=== PATIENT | female | born 1930 | race Caucasian/White ===

== ENCOUNTER 2016-11-26 10:15 | Inpatient (IN) | payer MEDICARE ==
[~2016-11-26] VITALS: Ht 157.5 cm; Wt 57.2 kg
[2016-11-26] VITALS (18 sets, daily range): BP systolic 93–206; BP diastolic 48–107; PULSE 60–83; RESP 15–27; TEMP 97.8–98; O2SAT 91–100
[~2016-11-26 10:15] MED LIST: ALPR.25 PO; AMLO10 PO; CARV12.5 PO; COZA100T PO; ENAL5 PO; GLUC10TA3 PO; GLYB1TAB50 PO; LEVEMIR SC; PYRI60 PO; ST J81CH PO
[2016-11-26] MEDS ORDERED: SODIUM CHLOR 0.9% 1000 ML INJ 1,000 ML IV ONE ×2 (10:22→10:52)
[2016-11-26] MEDS ORDERED: SODIUM CHLORIDE 0.9% FLUSH 5 ML FLUSH IVF PRN (10:30)
--- NOTE | 2016-11-26 10:37 | PD ---
HPI . Weakness Chief Complaint: Pain: Acute or Chronic Time Seen by Provider: 10:21 Travel History International Travel<30 days: No Contact w/Intl Traveler<30days: No Traveled to known affect area: No History of Present Illness HPI Patient presents via [facility] with a chief complaint of weakness. She reports the onset of her symptoms today. She states she was so weak today that it caused her to fall and injure her back. EMS reports that the family reported to them that the patient has had decreased by mouth intake and decreased activity for the last couple of days. She lives alone. They got a fingerstick blood sugar en route of greater than 400. She states she has been compliant with her medication. She reports no dietary indiscretions. She denies nausea, vomiting or diarrhea. She denies abdominal pain. She denies chest pain or shortness of breath. She states she does urinate a lot and that her mouth is dry. PFSH Past Medical History Hx Anticoagulant Therapy: No Anemia: Yes Arthritis: Yes Cancer: Yes (right breast in [id number]?) Cardiovascular Problems: Yes (HTN) Chemotherapy: No Diabetes: Yes Patient Takes Glucophage: No Diminished Hearing: No Endocrine: Yes Gastrointestinal Disorders: No Genitourinary: No Hypertension: Yes Immune Disorder: No Musculoskeletal: Yes Neurologic: Yes Reproductive: Yes (hysterectomy) Respiratory: No Radiation Therapy: Yes Tetanus Vaccination: Unknown ?: Not Menopausal: Yes Past Surgical History Abdominal Surgery: No Cardiac Surgery: No Endocrine Surgery: Yes (thyroid bx) Eye Surgery: Yes (catarct removed 10 yrs ago) Gynecologic Surgery: Yes (hysterectomy ,rigth breast lumpectomy) Hysterectomy: Yes Neurologic Surgery: No Thoracic Surgery: No Tonsillectomy: Yes Other Surgery: Yes Social History Alcohol Use: Yes (mix drinks occas.) Tobacco Use: No Substance Use: No Allergies-Medications (Allergen,Severity, Reaction): Coded Allergies: No Known Allergies (Unverified , 11/26/16) Reported Meds & Prescriptions Reported Meds & Active Scripts Active Reported Levemir Inj (Insulin Detemir) 1,000 unit/ 10 ML Vial 15 Units SQ HS Do not mix with any other Insulin. Losartan (Losartan Potassium) 100 Mg Tab 100 Mg PO DAILY Pyridostigmine (Pyridostigmine [place]) 60 Mg Tab 60 Mg PO TID Enalapril (Enalapril Maleate) 5 Mg Tab 5 Mg PO BID Amlodipine (Amlodipine Besylate) 10 Mg Tab 10 Mg PO DAILY Glipizide 10 Mg Tab 10 Mg PO DAILY Take 30 minutes before a meal Carvedilol 25 Mg Tab 25 Mg PO BID Review of Systems Except as stated in HPI: all other systems reviewed are Neg General / Constitutional: No: Fever, Chills Eyes: No: Blurred Vision HENT: No: Headaches Cardiovascular: No: Chest Pain or Discomfort Respiratory: No: Shortness of Breath Gastrointestinal: No: Nausea, Vomiting, Diarrhea, Abdominal Pain, Loss of Appetite Genitourinary: Positive: Frequency, No: Urgency, Dysuria Musculoskeletal: Positive: Pain (back pain) Neurologic: Positive: Weakness, No: Syncope, Focal Abnormalities Endocrine: Positive: Polyuria, Other (she denies polydipsia but states that her mouth is dry) Physical Exam Narrative GENERAL: Elderly woman who is awake and alert and does not appear to be in any acute distress. SKIN: Warm and dry. HEAD: Atraumatic. Normocephalic. EYES: Pupils equal and round. Extraocular movements are intact. ENT: No nasal bleeding or discharge. Mucous membranes pink but dry. Faint odor of ketones. NECK: Trachea midline. Neck is supple. CARDIOVASCULAR: Regular rate and rhythm. Heart sounds are normal. RESPIRATORY: No accessory muscle use. Lungs sound clear with full air movement throughout. GASTROINTESTINAL: Abdomen soft, non-tender, nondistended. MUSCULOSKELETAL: No obvious deformities. No edema. Patient is currently unable to sit up or roll over for me to examine her back. NEUROLOGICAL: Awake and alert. No obvious cranial nerve deficits. Motor grossly within normal limits. Normal speech. PSYCHIATRIC: Appropriate mood and affect; insight and judgment normal. Data Data Last Documented VS Vital Signs Date Time Temp Pulse Resp B/P Pulse Ox O2 Delivery O2 Flow Rate FiO2 11/26/16 12:02 70 16 155/55 99 Room Air 11/26/16 10:18 98.0 Orders Electrocardiogram (11/26/16 10:22) Complete Blood Count With Diff (11/26/16 10:22) Comprehensive Metabolic Panel (11/26/16 10:22) Magnesium (Mg) (11/26/16 10:22) Phosphorus (Po4) (11/26/16 10:22) Beta Hydroxybutyrate (Acetone) (11/26/16 10:22) Urinalysis - C+S If Indicated (11/26/16 10:22) Blood Glucose (11/26/16 10:22) Blood Glucose (11/26/16 11:22) Ecg Monitoring (11/26/16 10:22) Iv Access Insert/Monitor (11/26/16 10:22) Oximetry (11/26/16 10:22) NPO (11/26/16 10:22) Sodium Chlor 0.9% 1000 Ml Inj (Ns 1000 M (11/26/16 10:22) Sodium Chlor 0.9% 1000 Ml Inj (Ns 1000 M (11/26/16 10:52) Sodium Chloride 0.9% Flush (Ns Flush) (11/26/16 10:30) Troponin I (11/26/16 10:22) Spine, Lumbar - Ltd (Ap & Lat) (11/26/16 ) Insulin Regular (Iv Infusion) (Novolin R (11/26/16 11:00) Sodium Chlor 0.45%... W/Potassium Chlori (11/26/16 11:00) Morphine Inj (Morphine Inj) (11/26/16 11:30) Ondansetron Inj (Zofran Inj) (11/26/16 11:30) Basic Metabolic Panel (Bmp) (11/26/16 13:30) Blood Gas Venous Ph (11/26/16 13:30) Cath For Specimen (11/26/16 12:40) Labs Laboratory Tests Test 11/26/16 11/26/16 10:30 12:37 White Blood Count 12.1 TH/MM3 Red Blood Count 4.21 MIL/MM3 Hemoglobin 12.4 GM/DL Hematocrit 37.3 % Mean Corpuscular Volume 88.7 FL Mean Corpuscular Hemoglobin 29.4 PG Mean Corpuscular Hemoglobin 33.2 % Concent Red Cell Distribution Width 13.4 % Platelet Count 415 TH/MM3 Mean Platelet Volume 7.8 FL Neutrophils (%) (Auto) 71.3 % Lymphocytes (%) (Auto) 15.7 % Monocytes (%) (Auto) 6.7 % Eosinophils (%) (Auto) 2.1 % Basophils (%) (Auto) 4.2 % Neutrophils # (Auto) 8.6 TH/MM3 Lymphocytes # (Auto) 1.9 TH/MM3 Monocytes # (Auto) 0.8 TH/MM3 Eosinophils # (Auto) 0.3 TH/MM3 Basophils # (Auto) 0.5 TH/MM3 CBC Comment DIFF FINAL Differential Comment Sodium Level 137 MEQ/L 139 MEQ/L Potassium Level 4.4 MEQ/L 4.2 MEQ/L Chloride Level 101 MEQ/L 106 MEQ/L Carbon Dioxide Level 20.3 MEQ/L Anion Gap 16 MEQ/L Blood Urea Nitrogen 44 MG/DL Creatinine 1.60 MG/DL Estimat Glomerular Filtration 31 ML/MIN Rate Random Glucose 462 MG/DL Calcium Level 9.2 MG/DL Phosphorus Level 3.7 MG/DL Magnesium Level 1.9 MG/DL Total Bilirubin 0.7 MG/DL Aspartate Amino Transf 5 U/L (AST/SGOT) Alanine Aminotransferase 13 U/L (ALT/SGPT) Alkaline Phosphatase 77 U/L Troponin I LESS THAN 0.02 NG/ML Total Protein 7.6 GM/DL Albumin 3.0 GM/DL B-Hydroxybutyrate 5.67 MMOL/L MDM Medical Decision Making Medical Screen Exam Complete: Yes Emergency Medical Condition: Yes Medical Record Reviewed: Yes (past history significant for hypertension, diabetes and a remote history of breast cancer which was treated with x-ray therapy.) Interpretation(s) EKG shows a sinus rhythm. It is unchanged from previous. Differential Diagnosis Differential diagnosis of weakness includes but is not limited to infection, CVA , electrolyte disturbance, renal failure, hypoglycemia, UTI, ACS, acute blood loss Narrative Course Patient presents via EMS with a couple day history of weakness, poor by mouth intake and decreased activity. She is hyperglycemic. She has also suffered a fall this morning injuring her back. CBC & BMP Diagram 11/26/16 10:30 Her cardiac enzymes are negative. Ketones are 5.67 Last Impressions Lumbar Spine X-Ray 11/26/16 0000 Signed Impressions: Service Date/Time: Saturday, November 26, 2016 10:58 - CONCLUSION: 1. Subtle height loss at the superior endplate of L2 could represent a subtle compression fracture. This represents a change from the prior study from August 2014. 2. No other acute finding is identified. There are degenerative changes throughout the lumbar spine, as above. Prasad Anderson MD The x-rays were independently viewed by me. The patient has been receiving IV normal saline 2 L. I added a little saline with 40 of K at 250 cc per hour when I started her insulin. She is on an insulin drip at 0.1 mg/kg per hour. Glucose is being monitored. Patient was given morphine and Zofran for her back pain. Physician Communication Physician Communication Dr. Walker will admit the patient. Diagnosis Primary Impression: Hyperglycemia Additional Impression: Compression fracture of L2 Qualified Code: S32.020A - Compression fracture of L2, closed, initial encounter Admitting Information Admitting Physician Requests: Admit Condition: Stable Bessie Almaguer MD Nov 26, 2016 10:37
[2016-11-26 10:40] LABS: AUTOMATED NEUTROPHIL # 8.6 TH/MM3 (1.8-7.7); BASOPHIL # 0.5 TH/MM3 (0-0.2); BASOPHIL % 4.2 % (0.0-2.0); EOSINOPHIL # 0.3 TH/MM3 (0-0.4); EOSINOPHIL % 2.1 % (0.0-4.0); HEMATOCRIT 37.3 % (35.0-46.0); LYMPH % 15.7 % (9.0-44.0); LYMPHOCYTE # 1.9 TH/MM3 (1.0-4.8); MEAN CELL VOLUME 88.7 FL (80.0-100.0); MEAN CORPUSCULAR HEMOGLOBIN 29.4 PG (27.0-34.0); MEAN CORPUSCULAR HGB CONC 33.2 % (32.0-36.0); MONO % 6.7 % (0.0-8.0); NEUT % 71.3 % (16.0-70.0); PLATELET COUNT 415 TH/MM3 (150-450); RED BLOOD COUNT 4.21 MIL/MM3 (4.00-5.30); RED CELL DISTRIBUTION WIDTH 13.4 % (11.6-17.2); WHITE BLOOD COUNT 12.1 TH/MM3 (4.0-11.0)
[2016-11-26] MEDS ORDERED: ENAL5TAB PO (10:42)
[2016-11-26] MEDS ORDERED: AMLO10TA2 PO (10:42)
[2016-11-26] MEDS ORDERED: PYRI60 PO (10:42)
[2016-11-26] MEDS ORDERED: CARV25TA PO (10:42)
[2016-11-26] MEDS ORDERED: LOSA100T PO (10:42)
[2016-11-26] MEDS ORDERED: LEVEMIR SQ (10:42)
[2016-11-26] MEDS ORDERED: GLIP10TA6 PO (10:42)
[2016-11-26 10:46] LABS: HEMO FLAGS DIFF FINAL
[2016-11-26 10:48] LABS: CHLORIDE 101 MEQ/L (98-107); POTASSIUM 4.4 MEQ/L (3.5-5.1); SODIUM (NA) 137 MEQ/L (136-145)
[2016-11-26 10:52] LABS: ANION GAP 16 MEQ/L (5-15); BICARBONATE 20.3 MEQ/L (21.0-32.0)
[2016-11-26] MEDS ORDERED: POTASSIUM CHLORIDE INJ 40 MEQ in SODIUM CHLOR 0.45% 1000 ML INJ 1,000 ML IV SCH (11:00)
[2016-11-26] MEDS ORDERED: INSULIN REGULAR (IV INFUSION) 100 UNITS in SODIUM CHLORIDE 0.9% INJ 99 ML IV SCH ×2 (11:00→13:45)
[2016-11-26 11:01] LABS: ALKALINE PHOSPHATASE 77 U/L (45-117); ALT (GPT) 13 U/L (10-53); BLOOD UREA NITROGEN 44 MG/DL (7-18); GLOMERULAR FILTRATION RATE 31 ML/MIN (>89); MAGNESIUM 1.9 MG/DL (1.5-2.5); TOTAL BILIRUBIN ADULT 0.7 MG/DL (0.2-1.0)
[2016-11-26 11:06] LABS: AST (GOT) 5 U/L (15-37)
--- NOTE | 2016-11-26 11:22 | RADHPO ---
EXAM DATE/TIME: 11/26/2016 10:58 [facility] COMPARISON: SPINE LUMBAR LTD (AP & LAT), September 15, 2014, 20:38. INDICATIONS : Low back pain from fall MEDICAL HISTORY : None. SURGICAL HISTORY : None. ENCOUNTER: Initial ACUITY: 1 day PAIN SCORE: 6/10 LOCATION: Bilateral low back FINDINGS: 3 views of the lumbar spine demonstrate 5 nonrib-bearing lumbar vertebral bodies. The bones appear un dermineralized. There is subtle height loss at the superior endplate of L2 that appears different fro m the prior study. Remaining vertebral body height is maintained. There is no anterolisthesis or retr olisthesis. Endplate osteophytes are present anteriorly at multiple levels. There is facet hypertroph y at L3-L4 through L5-S1. There is moderate atherosclerotic disease of the aorta. CONCLUSION: 1. Subtle height loss at the superior endplate of L2 could represent a subtle compression fracture. T his represents a change from the prior study from August 2014. 2. No other acute finding is identified. There are degenerative changes throughout the lumbar spine, as above. Prasad Anderson MD on November 26, 2016 at 11:19 Board Certified Radiologist. This report was verified electronically.
[2016-11-26] MEDS ORDERED: MORPHINE SULFATE 4 MG/ML INJ IV ONE (11:30)
[2016-11-26] MEDS ORDERED: ONDANSETRON HCL 4 MG/2 ML VIAL IV PUSH ONE (11:30)
[2016-11-26 11:33] LABS: BETA-HYDROXYBUTYRATE 5.67 MMOL/L (0.00-0.39)
[2016-11-26 12:51] LABS: POTASSIUM 4.2 MEQ/L (3.5-5.1)
[2016-11-26 13:09] LABS: BICARBONATE 17.1 MEQ/L (21.0-32.0)
[2016-11-26] MEDS ORDERED: DEXT 5%-NACL 0.9% 1000 ML INJ 1,000 ML IV SCH (13:34)
[2016-11-26] MEDS ORDERED: SODIUM CHLOR 0.9% 1000 ML INJ 1,000 ML IV SCH (13:34)
[2016-11-26 13:40] LABS: KETONE, URINE 40 mg/dL (NEG); NITRITE,URINE NEG (NEG); PH, URINE 5.5 (5.0-8.5)
[2016-11-26] MEDS ORDERED: SODIUM BICARBONATE 8.4% SOLN 50 MEQ/50 ML VIAL IV PRN ×2 (13:45)
[2016-11-26] MEDS ORDERED: MISCELLANEOUS NURSING INFORMATION XX SCH (13:45)
[2016-11-26] MEDS ORDERED: POTASSIUM CHLOR 20 MEQ PREMIX 100 ML IV PRN ×4 (13:45)
[2016-11-26] MEDS ORDERED: CHLORHEXIDINE GLUCONATE 2 % 1 PACK (2 CLOTHS) TOP PRN (13:45)
[2016-11-26] MEDS ORDERED: SODIUM PHOSPHATE INJ 15 MMOL in SODIUM CHLORIDE 0.9% INJ 100 ML IV PRN (13:45)
[2016-11-26 13:46] LABS: BLOOD, URINE MOD (NEG); GLUCOSE,URINE 1000 OR GREATER mg/dL (NEG); METHOD OF COLLECTION CLEAN CATCH
[2016-11-26 13:47] LABS: COMMENT (UR) CULT NOT INDICATED; CULTURE IF INDICATED CULT NOT INDICATED; RBC, URINE 15-19 /hpf (0-3); SQUAMOUS EPITHELIAL CELL URINE 0-5 /hpf (0-5); URINE COLOR YELLOW (YELLW/STRAW); WBC, URINE 0-2 /hpf (0-5)
[2016-11-26 14:13] LABS: BLOOD GAS BASE EXCESS -7.5 mmol/L (-2-2); BLOOD GAS CARBOXYHEMOGLOBIN 2.1 % (0-4); BLOOD GAS HCO3 17 mmol/L (22-26); BLOOD GAS METHEMOGLOBIN 1.1 % (0-2); BLOOD GAS O2 HGB SATURATION 95 % (90-100); BLOOD GAS OXYGEN CONTENT 16.5 Vol % (12.0-20.0); BLOOD GAS PCO2 31 mmHG (38-42); BLOOD GAS PO2 94 mmHG (61-120); BLOOD GAS TOTAL HGB 12.3 G/DL (12.0-16.0); CRITICAL VALUE NO; DRAW SITE LT RADIAL; FIO2 21 %; NUMBER OF ARTERIAL PUNCTURES 1; OXYGEN DEVICE ROOM AIR; STAT NO; TEMP CORR TO 98.6; ULNAR PULSE PRESENT
--- NOTE | 2016-11-26 14:17 | RADHPO ---
EXAM DATE/TIME: 11/26/2016 13:52 [facility] COMPARISON: CHEST SINGLE AP, February 21, 2016, 16:33. CHEST PA & LAT, September 14, 2014, 10:57. INDICATIONS : Evaluate for pneumonia, pneumothorax or other communicable disease, pre admit for compression fx L2 MEDICAL HISTORY : Carcinoma, breast. SURGICAL HISTORY : None. ENCOUNTER: Subsequent ACUITY: 1 day PAIN SCORE: 0/10 LOCATION: Bilateral chest FINDINGS: Frontal and lateral views of the chest demonstrate a normal-sized cardiac silhouette with calcificati on of the aorta. Lungs are underinflated and there is subsegmental atelectasis at the right lung base . No effusion, consolidation, or pneumothorax is visualized. There is elevation of the right humeral head suggesting chronic rotator cuff tear. CONCLUSION: Underinflated examination with atelectasis at the right lung base. Otherwise, no acute finding is trevor ntified. Prasad Anderson MD on November 26, 2016 at 14:14 Board Certified Radiologist. This report was verified electronically.
[2016-11-26] MEDS ORDERED: GLUCAGON 1 MG/ML VIAL OTHER PRN (15:15)
[2016-11-26] MEDS ORDERED: MORPHINE SULFATE 4 MG/ML INJ IV PUSH PRN (15:15)
[2016-11-26] MEDS ORDERED: DEXTROSE 50% IN WATER 50 ML VIAL(D50) IV PUSH PRN (15:15)
[2016-11-26] MEDS: INSULIN ASPART SUPPLEMENTAL SCALE SQ SCH ×2 (16:12→21:00)
[2016-11-26] MEDS: SODIUM CHLOR 0.9% 1000 ML INJ 1,000 ML IV SCH (16:12)
[2016-11-26] MEDS: oxyCODONE/ACETAMINOPHEN 5 MG/325 MG TAB PO PRN (16:12)
[2016-11-26] MEDS: PYRIDOSTIGMINE BROMIDE 60 MG TAB PO SCH (16:12)
--- NOTE | 2016-11-26 16:40 | MH ---
cc: SULEIMAN JO MD DATE OF ADMISSION 11/26/2016 CHIEF COMPLAINT Acute on chronic back pain. HISTORY OF PRESENT ILLNESS This is an 86-year female with past medical-surgical history significant for anemia, arthritis, right breast cancer status post a mastectomy, right side. Hypertension, diabetes mellitus. History of hysterectomy, postmenopausal, thyroid biopsy in the past, cataract removed 10 years ago and tonsillectomy, who came to the ER at [facility] via [facility] with a chief complaint of generalized weakness and also having acute on chronic lower back pain. The pain is about 7-8 out of 10. She feels so weak today that it caused her to fall and is complaining of pain in the back and injury to the back. EMS reported that the family reported to them that the patient had decreased intake by mouth and decreased activity for the last couple of days. She lives alone. She got fingerstick blood sugar and it is elevated in the 400s. She states that she has been compliant with medications. She reports no dietary indiscretions. She denies nausea or vomiting, diarrhea and she denies any abdominal pain. She denies any chest pain, shortness of breath. She denies any frequent painful urination or any other symptom or complaint. Other than that nothing significant. The patient is not a very good historian. PAST MEDICAL AND SURGICAL HISTORY As dictated above. SOCIAL HISTORY Denies smoking. Drinks socially. Denies any drug use. Lives at home alone. She is a retired patent legal assistant. FAMILY HISTORY Nothing significant. ALLERGIES NO KNOWN DRUG ALLERGIES. MEDICATIONS Include: 1. Levemir injection 15 units subcutaneous at bedtime. 2. Losartan 100 mg p.o. daily. 3. Pyridostigmine 60 milligrams p.o. three times a day. 4. Enalapril 5 mg p.o. b.i.d. 5. Amlodipine 10 mg p.o. daily. 6. Glipizide 10 mg p.o. daily. 7. Carvedilol 25 mg p.o. b.i.d. REVIEW OF SYSTEMS Positive for back pain, feeling weak and tired, but again the patient is not a reliable in history and review of symptoms. PHYSICAL EXAMINATION GENERAL: This is an 86-year-old female lying in bed not in any acute distress. VITAL SIGNS: Temperature 98.0, heart rate 70, respiratory rate 16, blood pressure 148/64. O2 saturation 97% on room air. HEENT: Normocephalic, atraumatic. Extraocular muscles intact. Pupils equal, round and reactive to light. Oral mucosa is moist. NECK: Supple. No visible thyromegaly or neck mass. Trachea is central. CARDIOVASCULAR: Regular rate and rhythm. LUNGS: Clear to auscultation bilaterally. ABDOMEN: Soft. Nontender. Bowel sounds audible. EXTREMITIES: No pedal edema. No calf tenderness. No joint swelling, erythema. Full range of motion of all extremities. NEUROLOGICAL: Awake, alert, oriented times three. Moving all extremities. Speech is normal. SKIN: Warm and dry. BACK: Shows lower back tenderness. LABORATORY DATA Labs, CBC showed WBC count 12.1 high. Neutrophil high at 71.3. Basophils high 4.2. Neutrophil is 8.6 high. Otherwise CBC is normal. Hemoglobin is 12.4 normal, hematocrit 37.3 normal. BMP shows carbon dioxide high at 17.1. Anion gap is 16 high. BUN is 40, high. Creatinine was 1.6 now it is 1.5. Blood glucose of 462, then 388, then 192 last reading. Nurse CRISTINA Deluna told me about 192 blood sugar. He checked at bedside. Troponin I less than 0.02. Albumin 3.0, total protein 7.0. ____ 5.67 high. Urine examination showed glucose greater than 1000, 40 of ketones, moderate occult blood, rbc's 15-19, wbc's 0-2. ABGs done pH of 7.35 with pCO2 of 31 low, with bicarb 17. is 31 low. Blood cultures x2 done negative so far. IMAGING Lumbar spine x-ray was done shows subtle height loss at the superior endplate of L2 could represent a subtle compression fracture. This represents a change from the prior study from August of 2014. No acute finding is identified. There are degenerative changes throughout the lumbar spine and above. Chest x-ray was done shows under inflated examination with atelectasis at the right lung base, otherwise no acute findings is identified. ASSESSMENT/PLAN 1. This is an 86-year female who came to the ER diagnosed with DKA. The patient's sugar was 462 with 5.62 beta hydroxybuterate. The patient got IV fluids and insulin and the patient's sugar dropped down to 192. We managed the sugar with high-dose insulin sliding scale and monitored closely. The patient is in ICU. 2. Acute on chronic lower back pain. I will start the patient on morphine 4 mg IV q.4 hours p.r.n. pain and also Percocet 5/325 q.6h as needed for pain. 3. History of hypertension. Continue home medication. 4. Diabetes mellitus. The patient on ADA 1800 calorie diet. High dose sliding scale insulin. Check blood sugars very closely. 5. Renal failure / insufficiency. Most likely secondary to dehydration and DKA. We will monitor very closely. 6. Status post fall and x-ray of the lumbar spine shows subtle height loss at the superior endplate of L2 could represents a subtle compression fracture. Orthopedic consulted for further recommendation. The patient is on pain medicine. 7. History of arthritis. Continue home medication. 8. History of myasthenia gravis. Continue home medication. 9. DVT prophylaxis. SCDs. 10. GI prophylaxis. Protonix 40 mg p.o. daily. We are going to manage the patient on a daily basis and make recommendations on a daily basis. Suleiman Jo MD EA/BIBI /3:05 PM /4:04 PM
[2016-11-26 19:06] LABS: CHLORIDE 111 MEQ/L (98-107); POTASSIUM 4.2 MEQ/L (3.5-5.1); SODIUM (NA) 143 MEQ/L (136-145)
[2016-11-26 20:22] LABS: ANION GAP 12 MEQ/L (5-15); BICARBONATE 19.6 MEQ/L (21.0-32.0); BLOOD UREA NITROGEN 35 MG/DL (7-18); GLOMERULAR FILTRATION RATE 36 ML/MIN (>89); MAGNESIUM 1.8 MG/DL (1.5-2.5)
[2016-11-26] MEDS: ENALAPRIL MALEATE 5 MG TAB PO SCH (21:34)
[2016-11-26] MEDS: CARVEDILOL 12.5 MG TAB PO SCH (21:35)
[2016-11-27] VITALS (51 sets, daily range): BP systolic 97–140; BP diastolic 44–70; PULSE 54–76; RESP 12–36; TEMP 97.6–98.1; O2SAT 92–98
[2016-11-27 05:45] LABS: AUTOMATED NEUTROPHIL # 5.1 TH/MM3 (1.8-7.7); BASOPHIL # 0.1 TH/MM3 (0-0.2); BASOPHIL % 0.9 % (0.0-2.0); EOSINOPHIL # 0.4 TH/MM3 (0-0.4); EOSINOPHIL % 4.8 % (0.0-4.0); HEMATOCRIT 34.7 % (35.0-46.0); HEMO FLAGS DIFF FINAL; LYMPH % 24.2 % (9.0-44.0); MEAN CELL VOLUME 87.5 FL (80.0-100.0); MEAN CORPUSCULAR HEMOGLOBIN 28.8 PG (27.0-34.0); MEAN CORPUSCULAR HGB CONC 32.9 % (32.0-36.0); NEUT % 60.1 % (16.0-70.0); PLATELET COUNT 323 TH/MM3 (150-450); RED BLOOD COUNT 3.96 MIL/MM3 (4.00-5.30); RED CELL DISTRIBUTION WIDTH 13.1 % (11.6-17.2); WHITE BLOOD COUNT 8.4 TH/MM3 (4.0-11.0)
[2016-11-27 05:57] LABS: CHLORIDE 111 MEQ/L (98-107); POTASSIUM 4.3 MEQ/L (3.5-5.1); SODIUM (NA) 143 MEQ/L (136-145)
[2016-11-27 06:02] LABS: ANION GAP 13 MEQ/L (5-15); BICARBONATE 19.4 MEQ/L (21.0-32.0); BLOOD UREA NITROGEN 33 MG/DL (7-18)
[2016-11-27 06:05] LABS: ALT (GPT) 11 U/L (10-53); AST (GOT) 8 U/L (15-37); GLOMERULAR FILTRATION RATE 36 ML/MIN (>89)
[2016-11-27 06:07] LABS: TOTAL BILIRUBIN ADULT 0.5 MG/DL (0.2-1.0)
[2016-11-27 06:08] LABS: ALKALINE PHOSPHATASE 67 U/L (45-117)
[2016-11-27] MEDS: INSULIN ASPART SUPPLEMENTAL SCALE SQ SCH ×4 (06:35→21:17)
[2016-11-27] MEDS: SODIUM CHLOR 0.9% 1000 ML INJ 1,000 ML IV SCH ×3 (06:35→21:17)
[2016-11-27] MEDS: CHLORHEXIDINE GLUCONATE 2 % 1 PACK (2 CLOTHS) TOP SCH (06:37)
--- NOTE | 2016-11-27 08:21 | HHI.PR ---
Subjective History of Present Illness Patient feel better no acute issue d/w RN Will transfer [facility]. Review of Systems Constitutional Constitutional: Fatigue, Weakness Vitals/Results Intake & Output 11/26/16 11/26/16 11/27/16 15:00 23:00 07:00 Intake Total 2000 ml 2590 ml 1033 ml Output Total 600 ml 400 ml Balance 2000 ml 1990 ml 633 ml Intake Oral 480 ml 240 ml IV Total 2000 ml 2110 ml 793 ml Output Urine Total 600 ml 400 ml # Bowel Movements 0 0 Vital Signs Vital Signs Date Time Temp Pulse Resp B/P Pulse Ox O2 Delivery O2 Flow Rate FiO2 11/27/16 06:01 64 16 117/52 96 11/27/16 06:00 64 11/27/16 05:01 62 19 125/57 96 11/27/16 04:10 97.7 63 24 140/62 96 11/27/16 04:00 66 11/27/16 03:01 62 21 119/51 98 11/27/16 02:01 64 25 118/54 97 11/27/16 02:00 62 11/27/16 01:01 62 20 110/55 96 11/27/16 00:01 97.6 62 20 97/50 95 11/27/16 00:00 64 11/26/16 23:01 60 20 93/48 91 11/26/16 22:01 64 22 112/53 95 11/26/16 22:00 64 11/26/16 21:01 62 22 110/50 11/26/16 20:01 98.0 66 20 107/50 92 11/26/16 20:00 63 11/26/16 19:01 68 21 110/56 91 11/26/16 18:01 68 11/26/16 18:01 68 22 119/59 11/26/16 17:01 70 22 130/54 11/26/16 16:01 97.8 72 16 167/71 95 11/26/16 16:00 83 11/26/16 15:01 74 27 180/85 11/26/16 14:48 76 15 190/77 93 11/26/16 14:28 70 16 148/64 97 11/26/16 12:02 70 16 155/55 99 Room Air 11/26/16 11:09 73 16 205/107 100 Room Air 11/26/16 10:26 16 98 Room Air 11/26/16 10:18 98.0 76 16 206/75 99 CBC/BMP: 11/27/16 0455 11/27/16 0455 Lab Results Laboratory Tests Test 11/26/16 11/26/16 11/26/16 11/26/16 10:30 12:37 13:25 14:05 White Blood Count 12.1 TH/MM3 Red Blood Count 4.21 MIL/MM3 Hemoglobin 12.4 GM/DL Hematocrit 37.3 % Mean Corpuscular Volume 88.7 FL Mean Corpuscular Hemoglobin 29.4 PG Mean Corpuscular Hemoglobin 33.2 % Concent Red Cell Distribution Width 13.4 % Platelet Count 415 TH/MM3 Mean Platelet Volume 7.8 FL Neutrophils (%) (Auto) 71.3 % Lymphocytes (%) (Auto) 15.7 % Monocytes (%) (Auto) 6.7 % Eosinophils (%) (Auto) 2.1 % Basophils (%) (Auto) 4.2 % Neutrophils # (Auto) 8.6 TH/MM3 Lymphocytes # (Auto) 1.9 TH/MM3 Monocytes # (Auto) 0.8 TH/MM3 Eosinophils # (Auto) 0.3 TH/MM3 Basophils # (Auto) 0.5 TH/MM3 CBC Comment DIFF FINAL Differential Comment Sodium Level 137 MEQ/L 139 MEQ/L Potassium Level 4.4 MEQ/L 4.2 MEQ/L Chloride Level 101 MEQ/L 106 MEQ/L Carbon Dioxide Level 20.3 MEQ/L 17.1 MEQ/L Anion Gap 16 MEQ/L 16 MEQ/L Blood Urea Nitrogen 44 MG/DL 40 MG/DL Creatinine 1.60 MG/DL 1.50 MG/DL Estimat Glomerular Filtration 31 ML/MIN 33 ML/MIN Rate Random Glucose 462 MG/DL 388 MG/DL Calcium Level 9.2 MG/DL 8.3 MG/DL Phosphorus Level 3.7 MG/DL Magnesium Level 1.9 MG/DL Total Bilirubin 0.7 MG/DL Aspartate Amino Transf 5 U/L (AST/SGOT) Alanine Aminotransferase 13 U/L (ALT/SGPT) Alkaline Phosphatase 77 U/L Troponin I LESS THAN 0.02 NG/ML Total Protein 7.6 GM/DL Albumin 3.0 GM/DL B-Hydroxybutyrate 5.67 MMOL/L Urine Collection Type CLEAN CATCH Urine Color YELLOW Urine Turbidity CLEAR Urine pH 5.5 Urine Specific [place] 1.022 Urine Protein TRACE mg/dL Urine Glucose (UA) 1000 OR GREATER mg/dL Urine Ketones 40 mg/dL Urine Occult Blood MOD Urine Nitrite NEG Urine Bilirubin NEG Urine Leukocyte Esterase NEG Urine RBC 15-19 /hpf Urine WBC 0-2 /hpf Urine Squamous Epithelial 0-5 /hpf Cells Microscopic Urinalysis Comment CULT NOT INDICATED Urine Collection Time 13:25 Blood Gas Puncture Site LT RADIAL Blood Gas Patient Temperature 98.6 Blood Gas HCO3 17 mmol/L Blood Gas Base Excess -7.5 mmol/L Blood Gas Oxygen Saturation 95 % Arterial Blood pH 7.35 Arterial Blood Partial 31 mmHG Pressure CO2 Arterial Blood Partial 94 mmHG Pressure O2 Arterial Blood Oxygen Content 16.5 Vol % Arterial Blood 2.1 % Carboxyhemoglobin Arterial Blood Methemoglobin 1.1 % Blood Gas Hemoglobin 12.3 G/DL Oxygen Delivery Device ROOM AIR Blood Gas Inspired Oxygen 21 % Test 11/26/16 11/26/16 11/27/16 16:50 18:50 04:55 Nasal Screen MRSA (PCR) NEGATIVE Sodium Level 143 MEQ/L 143 MEQ/L Potassium Level 4.2 MEQ/L 4.3 MEQ/L Chloride Level 111 MEQ/L 111 MEQ/L Carbon Dioxide Level 19.6 MEQ/L 19.4 MEQ/L Anion Gap 12 MEQ/L 13 MEQ/L Blood Urea Nitrogen 35 MG/DL 33 MG/DL Creatinine 1.40 MG/DL 1.40 MG/DL Estimat Glomerular Filtration 36 ML/MIN 36 ML/MIN Rate Random Glucose 147 MG/DL 222 MG/DL Calcium Level 8.3 MG/DL 8.4 MG/DL Phosphorus Level 2.7 MG/DL Magnesium Level 1.8 MG/DL White Blood Count 8.4 TH/MM3 Red Blood Count 3.96 MIL/MM3 Hemoglobin 11.4 GM/DL Hematocrit 34.7 % Mean Corpuscular Volume 87.5 FL Mean Corpuscular Hemoglobin 28.8 PG Mean Corpuscular Hemoglobin 32.9 % Concent Red Cell Distribution Width 13.1 % Platelet Count 323 TH/MM3 Mean Platelet Volume 8.1 FL Neutrophils (%) (Auto) 60.1 % Lymphocytes (%) (Auto) 24.2 % Monocytes (%) (Auto) 10.0 % Eosinophils (%) (Auto) 4.8 % Basophils (%) (Auto) 0.9 % Neutrophils # (Auto) 5.1 TH/MM3 Lymphocytes # (Auto) 2.0 TH/MM3 Monocytes # (Auto) 0.8 TH/MM3 Eosinophils # (Auto) 0.4 TH/MM3 Basophils # (Auto) 0.1 TH/MM3 CBC Comment DIFF FINAL Differential Comment Total Bilirubin 0.5 MG/DL Aspartate Amino Transf 8 U/L (AST/SGOT) Alanine Aminotransferase 11 U/L (ALT/SGPT) Alkaline Phosphatase 67 U/L Total Protein 6.5 GM/DL Albumin 2.5 GM/DL Microbiology Microbiology 11/26/16 Aerobic Blood Culture, Received Pending 11/26/16 Anaerobic Blood Culture, Received Pending 11/26/16 Aerobic Blood Culture, Received Pending 11/26/16 Anaerobic Blood Culture, Received Pending Physical Exam General General Appearance: Well Nourished, No Acute Distress, Comfortable Eyes Eye Exam: Pupils Equal, Pupils Reactive, Sclera White, Extraocular Movement Intact Throat Throat Exam: Oral Mucosa [place] & Moist, Oral Pharynx Normal Neck Neck Exam: Neck Supple, Trachea Midline Pulmonary Resp Exam: Clear Bilaterally, Breath Sounds Equal, No Distress Cardiology CV Exam: Regular, Normal Sinus Rhythm Gastrointestinal/Abdomen GI Exam: Soft, Non-Tender, Bowel Sounds Present Musculoskeletal MS Exam: Normal Tone Integumentary Skin Exam: Clear, Warm, Dry, Intact Extremeties Extremities Exam: No Edema Neurologic Neuro Exam: Alert, Awake, Oriented, Speech Clear, Moving All Extremities, No Focal Deficits Psychiatric Psych Exam: Appropriate Responses VTE Prophylaxis VTE Prophylaxis Device: SCDs PUD Prophylasis PUD Prophylaxis: Protonix Assessment/Plan Assessment/Plan ASSESSMENT/PLAN 1. This is an 86-year female who came to the ER diagnosed with DKA. The patient's sugar was 462 with 5.62 beta hydroxybuterate. The patient got IV fluids and insulin and the patient's sugar dropped down . We managed the sugar with high-dose insulin sliding scale and home medicine and monitored closely. 2. Acute on chronic lower back pain. the patient on morphine 4 mg IV q.4 hours p.r.n. pain and also Percocet 5/325 q.6h as needed for pain. 3. History of hypertension. Continue home medication. 4. Diabetes mellitus. The patient on ADA 1800 calorie diet. High dose sliding scale insulin. Check blood sugars very closely. 5. Renal failure / insufficiency. Most likely secondary to dehydration and DKA. We will monitor very closely. 6. Status post fall and x-ray of the lumbar spine shows subtle height loss at the superior endplate of L2 could represents a subtle compression fracture. Orthopedic consulted for further recommendation. The patient is on pain medicine. 7. History of arthritis. Continue home medication. 8. History of myasthenia gravis. Continue home medication. 9. DVT prophylaxis. SCDs. 10. GI prophylaxis. Protonix 40 mg p.o. daily. We are going to manage the patient on a daily basis and make recommendations on a daily basis. Suleiman Collins MD Nov 27, 2016 08:21
[2016-11-27] MEDS: CARVEDILOL 12.5 MG TAB PO SCH ×2 (08:23→21:16)
[2016-11-27] MEDS: PYRIDOSTIGMINE BROMIDE 60 MG TAB PO SCH ×3 (08:24→18:00)
[2016-11-27] MEDS: LOSARTAN 50 MG TAB PO SCH (08:24)
[2016-11-27] MEDS: ENALAPRIL MALEATE 5 MG TAB PO SCH ×2 (08:25→21:16)
[2016-11-27 09:07] LABS: HEMOGLOBIN A1a 1.1 %; HEMOGLOBIN A1b 1.1 %; HEMOGLOBIN Ao 75.6 %; HEMOGLOBIN F 1.7 %; HEMOGLOBIN LA1C 2.1 %; HEMOGLOBIN P3 5.3 %
[2016-11-27] MEDS: glipiZIDE 10 MG TAB PO SCH (09:14)
--- NOTE | 2016-11-27 10:21 | EKG ---
Date Performed: 11/26/2016 Time Performed: 10:31:48 PTAGE: 86 years EKG: Sinus rhythm Lateral ST-T changes may be due to myocardial ischemia Abnormal ECG Compared to prior tracing no sig nificant change PREVIOUS TRACING : 02/21/2016 16.21 DOCTOR: Eris Gustafson Interpretating Date/Time 11/27/2016 10:18:22
[2016-11-27] MEDS: oxyCODONE/ACETAMINOPHEN 5 MG/325 MG TAB PO PRN ×2 (14:09→21:16)
[2016-11-27] MEDS: INSULIN DETEMIR 100 UNITS/ML VIAL SQ SCH (21:17)
[2016-11-28] VITALS (7 sets, daily range): BP systolic 126–182; BP diastolic 60–81; PULSE 57–66; RESP 16–20; TEMP 96.3–97.6; O2SAT 96–100
[2016-11-28] MEDS: CHLORHEXIDINE GLUCONATE 2 % 1 PACK (2 CLOTHS) TOP SCH (03:22)
[2016-11-28] MEDS: INSULIN ASPART SUPPLEMENTAL SCALE SQ SCH ×4 (06:20→21:20)
[2016-11-28 06:56] LABS: AUTOMATED NEUTROPHIL # 5.4 TH/MM3 (1.8-7.7); BASOPHIL % 0.6 % (0.0-2.0); EOSINOPHIL # 0.4 TH/MM3 (0-0.4); EOSINOPHIL % 4.3 % (0.0-4.0); HEMATOCRIT 35.9 % (35.0-46.0); HEMO FLAGS DIFF FINAL; LYMPH % 22.8 % (9.0-44.0); LYMPHOCYTE # 1.9 TH/MM3 (1.0-4.8); MEAN CELL VOLUME 88.2 FL (80.0-100.0); MEAN CORPUSCULAR HEMOGLOBIN 29.8 PG (27.0-34.0); MEAN CORPUSCULAR HGB CONC 33.8 % (32.0-36.0); MONO % 6.6 % (0.0-8.0); NEUT % 65.7 % (16.0-70.0); PLATELET COUNT 359 TH/MM3 (150-450); RED BLOOD COUNT 4.07 MIL/MM3 (4.00-5.30); RED CELL DISTRIBUTION WIDTH 13.1 % (11.6-17.2); WHITE BLOOD COUNT 8.2 TH/MM3 (4.0-11.0)
[2016-11-28 06:57] LABS: CHLORIDE 112 MEQ/L (98-107); POTASSIUM 3.6 MEQ/L (3.5-5.1); SODIUM (NA) 146 MEQ/L (136-145)
[2016-11-28 07:02] LABS: ANION GAP 14 MEQ/L (5-15); BICARBONATE 20.4 MEQ/L (21.0-32.0)
[2016-11-28 07:20] LABS: ALKALINE PHOSPHATASE 78 U/L (45-117); ALT (GPT) 14 U/L (10-53); AST (GOT) 17 U/L (15-37); BLOOD UREA NITROGEN 25 MG/DL (7-18); GLOMERULAR FILTRATION RATE 39 ML/MIN (>89); TOTAL BILIRUBIN ADULT 0.4 MG/DL (0.2-1.0)
[2016-11-28] MEDS: SODIUM CHLOR 0.9% 1000 ML INJ 1,000 ML IV SCH ×2 (07:30→17:37)
--- NOTE | 2016-11-28 07:51 | HHI.PR ---
Subjective History of Present Illness Patient feel better no acute issue Review of Systems Constitutional Constitutional: Fatigue, Weakness Vitals/Results Intake & Output 11/27/16 11/27/16 11/28/16 15:00 23:00 07:00 Intake Total 2036 ml 60 ml Output Total 650 ml 250 ml Balance 1386 ml -190 ml Intake Oral 600 ml 60 ml IV Total 1436 ml Output Urine Total 650 ml 250 ml # Voids 1 1 # Bowel Movements 0 0 Vital Signs Vital Signs Date Time Temp Pulse Resp B/P Pulse Ox O2 Delivery O2 Flow Rate FiO2 11/28/16 04:30 97.5 63 20 170/80 98 11/28/16 03:20 97.5 59 16 169/71 96 11/28/16 00:00 97.6 62 16 126/60 96 11/27/16 20:00 97.7 63 22 113/54 98 11/27/16 20:00 58 11/27/16 18:00 65 11/27/16 16:30 54 16 92 11/27/16 16:15 62 23 94 11/27/16 16:00 57 11/27/16 16:00 60 17 11/27/16 16:00 97.9 60 18 126/61 98 11/27/16 15:45 56 13 11/27/16 15:30 56 12 11/27/16 15:15 56 14 11/27/16 15:00 56 13 11/27/16 14:45 56 15 11/27/16 14:30 60 15 11/27/16 14:15 62 19 11/27/16 14:00 61 11/27/16 14:00 60 15 11/27/16 13:45 64 18 11/27/16 13:30 66 19 11/27/16 13:24 64 20 122/70 11/27/16 13:15 66 20 11/27/16 13:00 66 26 11/27/16 12:30 98.1 60 18 98 11/27/16 12:15 64 22 11/27/16 12:00 66 11/27/16 12:00 62 29 11/27/16 11:45 62 23 11/27/16 11:30 62 18 11/27/16 11:15 66 29 11/27/16 11:07 62 16 114/52 11/27/16 11:06 64 19 104/44 11/27/16 10:00 67 11/27/16 09:15 64 13 95 11/27/16 09:05 76 36 131/65 96 11/27/16 09:00 66 21 94 11/27/16 08:45 68 19 95 11/27/16 08:30 68 27 11/27/16 08:15 70 27 11/27/16 08:01 97.8 62 13 119/47 93 11/27/16 08:00 65 11/27/16 08:00 62 15 94 CBC/BMP: 11/28/16 0610 11/28/16 0610 Lab Results Laboratory Tests Test 11/28/16 06:10 White Blood Count 8.2 TH/MM3 Red Blood Count 4.07 MIL/MM3 Hemoglobin 12.1 GM/DL Hematocrit 35.9 % Mean Corpuscular Volume 88.2 FL Mean Corpuscular Hemoglobin 29.8 PG Mean Corpuscular Hemoglobin 33.8 % Concent Red Cell Distribution Width 13.1 % Platelet Count 359 TH/MM3 Mean Platelet Volume 7.6 FL Neutrophils (%) (Auto) 65.7 % Lymphocytes (%) (Auto) 22.8 % Monocytes (%) (Auto) 6.6 % Eosinophils (%) (Auto) 4.3 % Basophils (%) (Auto) 0.6 % Neutrophils # (Auto) 5.4 TH/MM3 Lymphocytes # (Auto) 1.9 TH/MM3 Monocytes # (Auto) 0.5 TH/MM3 Eosinophils # (Auto) 0.4 TH/MM3 Basophils # (Auto) 0.0 TH/MM3 CBC Comment DIFF FINAL Differential Comment Sodium Level 146 MEQ/L Potassium Level 3.6 MEQ/L Chloride Level 112 MEQ/L Carbon Dioxide Level 20.4 MEQ/L Anion Gap 14 MEQ/L Blood Urea Nitrogen 25 MG/DL Creatinine 1.30 MG/DL Estimat Glomerular Filtration 39 ML/MIN Rate Random Glucose 97 MG/DL Calcium Level 8.8 MG/DL Total Bilirubin 0.4 MG/DL Aspartate Amino Transf 17 U/L (AST/SGOT) Alanine Aminotransferase 14 U/L (ALT/SGPT) Alkaline Phosphatase 78 U/L Total Protein 6.7 GM/DL Albumin 2.6 GM/DL Physical Exam General General Appearance: Well Nourished, No Acute Distress, Comfortable Eyes Eye Exam: Pupils Equal, Pupils Reactive, Sclera White, Extraocular Movement Intact Throat Throat Exam: Oral Mucosa [place] & Moist, Oral Pharynx Normal Neck Neck Exam: Neck Supple, Trachea Midline Pulmonary Resp Exam: Clear Bilaterally, Breath Sounds Equal, No Distress Cardiology CV Exam: Regular, Normal Sinus Rhythm Gastrointestinal/Abdomen GI Exam: Soft, Non-Tender, Bowel Sounds Present Musculoskeletal MS Exam: Normal Tone Integumentary Skin Exam: Clear, Warm, Dry, Intact Extremeties Extremities Exam: No Edema Neurologic Neuro Exam: Alert, Awake, Oriented, Speech Clear, Moving All Extremities, No Focal Deficits Psychiatric Psych Exam: Appropriate Responses VTE Prophylaxis VTE Prophylaxis Device: SCDs PUD Prophylasis PUD Prophylaxis: Protonix Assessment/Plan Assessment/Plan ASSESSMENT/PLAN 1. This is an 86-year female who came to the ER diagnosed with DKA. The patient's sugar was 462 with 5.62 beta hydroxybuterate. The patient got IV fluids and insulin and the patient's sugar dropped down . We managed the sugar with high-dose insulin sliding scale and home medicine and monitored closely. 2. Acute on chronic lower back pain. the patient on morphine 4 mg IV q.4 hours p.r.n. pain and also Percocet 5/325 q.6h as needed for pain. 3. History of hypertension. Continue home medication. 4. Diabetes mellitus. The patient on ADA 1800 calorie diet. High dose sliding scale insulin. Check blood sugars very closely. 5. Renal failure / insufficiency. Most likely secondary to dehydration and DKA. We will monitor very closely. 6. Status post fall and x-ray of the lumbar spine shows subtle height loss at the superior endplate of L2 could represents a subtle compression fracture. Orthopedic consulted for further recommendation. The patient is on pain medicine. 7. History of arthritis. Continue home medication. 8. History of myasthenia gravis. Continue home medication. 9. DVT prophylaxis. SCDs. 10. GI prophylaxis. Protonix 40 mg p.o. daily. Check CBC with diff CMP in AM. We are going to manage the patient on a daily basis and make recommendations on a daily basis. Discussed Condition with: Patient Suleiman Collins MD Nov 28, 2016 07:51
[2016-11-28] MEDS: glipiZIDE 10 MG TAB PO SCH (09:59)
[2016-11-28] MEDS: LOSARTAN 50 MG TAB PO SCH (09:59)
[2016-11-28] MEDS: ENALAPRIL MALEATE 5 MG TAB PO SCH ×2 (09:59→21:21)
[2016-11-28] MEDS: CARVEDILOL 12.5 MG TAB PO SCH ×2 (10:04→21:21)
[2016-11-28] MEDS: PYRIDOSTIGMINE BROMIDE 60 MG TAB PO SCH ×3 (10:04→17:35)
[2016-11-28] MEDS: oxyCODONE/ACETAMINOPHEN 5 MG/325 MG TAB PO PRN ×2 (10:12→23:33)
[2016-11-28] MEDS ORDERED: cefTRIAXone 1,000 MG/NS 100 ML IV SCH ×2 (13:00)
--- NOTE | 2016-11-28 18:49 | MB ---
cc: HOWARD CONTRERAS MD DATE OF CONSULTATION 11/28/[address] Collins REASON FOR CONSULTATION Positive blood culture. HISTORY OF PRESENT ILLNESS This is an 86-year-old white female who presented to the emergency department on 11/26/2016 with weakness. The patient reportedly fell because of the weakness. She also had decreased oral intake and decreased activity for two days prior to admission. The patient is a very poor historian and, therefore, information is mostly obtained from the medical record. Currently, she is in no acute distress. She tells me that she feels okay. She denies pain. She is afebrile. Her white blood cell count is normal at 8.2. The white count was elevated at 12.1 on 11/26. Blood cultures were taken on 11/26 and one of the four bottles has staph coagulase negative. The patient denies chills. She denies nausea or vomiting. Urinalysis on admission showed 0-2 white cells and a culture was not taken. The patient did have marked elevation of urine glucose. PAST MEDICAL HISTORY 1. Anemia, 2. Arthritis, 3. Diabetes mellitus, 4. Hypertension, 5. History of hysterectomy, 6. History of cataract surgery 7. History of tonsillectomy, 8. History of mastectomy for right breast cancer. ALLERGIES NO KNOWN DRUG ALLERGIES. MEDICATIONS 1. Ceftriaxone. 2. Levemir 3. Cozaar 4. Glucotrol. 5. Coreg 6. Vasotec 7. Mestinon 8. Insulin. 9. Norvasc. SOCIAL HISTORY No tobacco. Occasional alcohol. No illicit drugs. FAMILY HISTORY Noncontributory. REVIEW OF SYSTEMS Difficult to obtain but negative. The patient denies all 10 features of the review of systems. PHYSICAL EXAMINATION GENERAL: This is a slender well-developed female who is in no acute distress. She is awake and alert and oriented. VITAL SIGNS: Temperature of 96.7, BP 142/68, respirations 16, heart rate 57. HEENT: Head is atraumatic. Extraocular movements grossly intact, pupils reactive to light without icterus. Oropharynx no visible lesions. Moist mucosa. NECK: Supple without adenopathy. LUNGS: Clear breath sounds bilateral. HEART: Regular rate and rhythm without murmurs, rubs or gallops. ABDOMEN: Bowel sounds present, soft, decreased bowel sounds, however. No tenderness. RECTAL: Not performed. EXTREMITIES: No clubbing, cyanosis or edema. NEUROLOGIC: Nonfocal. SKIN: No rash. The skin is warm and moist. LABORATORY DATA WBC 8.2, platelets 359, hemoglobin 12.1. Creatinine 1.30, BUN 25, sodium 146, estimated GFR of 39. IMPRESSION Positive blood culture with staph coagulase negative. The patient is without features suggesting septicemia at this point. She very likely has positive blood culture due to contamination and, given her features on clinical evaluation and exam, I do not think she has active sepsis or even foci of infection to explain the staph coagulase negative in the blood stream. RECOMMENDATIONS Monitor the patient clinically. If she develops fever, the blood culture should be repeated chest. Otherwise, I would monitor for any features suggesting active infection. I will see the patient p.r.n. from this point on. Please call if any further input is needed. Howard Contreras MD FD/ /5:04 PM /6:37 PM
[2016-11-28] MEDS: INSULIN DETEMIR 100 UNITS/ML VIAL SQ SCH (21:20)
[2016-11-29] VITALS: BP 163/78; PULSE 53; RESP 18; TEMP 96; O2SAT 97
[2016-11-29] MEDS: CHLORHEXIDINE GLUCONATE 2 % 1 PACK (2 CLOTHS) TOP SCH (02:04)
[2016-11-29] MEDS: INSULIN ASPART SUPPLEMENTAL SCALE SQ SCH ×4 (04:51→21:00)
[2016-11-29] MEDS: SODIUM CHLOR 0.9% 1000 ML INJ 1,000 ML IV SCH (04:54)
[2016-11-29 06:33] LABS: AUTOMATED NEUTROPHIL # 3.4 TH/MM3 (1.8-7.7); BASOPHIL % 0.8 % (0.0-2.0); EOSINOPHIL # 0.4 TH/MM3 (0-0.4); EOSINOPHIL % 6.6 % (0.0-4.0); HEMATOCRIT 35.7 % (35.0-46.0); HEMO FLAGS DIFF FINAL; LYMPH % 26.8 % (9.0-44.0); LYMPHOCYTE # 1.6 TH/MM3 (1.0-4.8); MEAN CELL VOLUME 87.7 FL (80.0-100.0); MEAN CORPUSCULAR HEMOGLOBIN 29.3 PG (27.0-34.0); MEAN CORPUSCULAR HGB CONC 33.4 % (32.0-36.0); MONO % 8.3 % (0.0-8.0); NEUT % 57.5 % (16.0-70.0); PLATELET COUNT 358 TH/MM3 (150-450); RED BLOOD COUNT 4.07 MIL/MM3 (4.00-5.30); RED CELL DISTRIBUTION WIDTH 13.3 % (11.6-17.2); WHITE BLOOD COUNT 5.9 TH/MM3 (4.0-11.0)
[2016-11-29 06:40] LABS: CHLORIDE 113 MEQ/L (98-107); POTASSIUM 3.1 MEQ/L (3.5-5.1); SODIUM (NA) 147 MEQ/L (136-145)
[2016-11-29 06:44] LABS: ANION GAP 9 MEQ/L (5-15); BLOOD UREA NITROGEN 18 MG/DL (7-18)
[2016-11-29 06:47] LABS: ALT (GPT) 17 U/L (10-53); AST (GOT) 23 U/L (15-37); GLOMERULAR FILTRATION RATE 47 ML/MIN (>89)
[2016-11-29 06:49] LABS: TOTAL BILIRUBIN ADULT 0.3 MG/DL (0.2-1.0)
[2016-11-29 06:50] LABS: ALKALINE PHOSPHATASE 100 U/L (45-117)
[2016-11-29 08:00] VITALS: BP 179/99; PULSE 55; RESP 18; TEMP 96; O2SAT 94
--- NOTE | 2016-11-29 08:52 | HHI.PR ---
Subjective History of Present Illness pt is seen & Examined chart reviewed Resting in bed I am Ok back pain is in control No N/V No abd pain appetite is ok BG dropped this am had large loose BM today offers no other c/o Review of Systems Constitutional Constitutional: Fatigue, Weakness Vitals/Results Intake & Output 11/28/16 11/28/16 11/29/16 15:00 23:00 07:00 Intake Total 2172 ml 1640 ml Output Total 500 ml Balance 2172 ml 1140 ml Intake Oral 720 ml 240 ml IV Total 1452 ml 1400 ml Output Urine Total 500 ml # Voids 6 4 1 # Bowel Movements 0 Vital Signs Vital Signs Date Time Temp Pulse Resp B/P Pulse Ox O2 Delivery O2 Flow Rate FiO2 11/29/16 01:43 18 11/29/16 00:00 96.0 53 18 163/78 97 11/28/16 20:00 96.3 66 18 162/78 97 11/28/16 16:00 96.7 57 16 142/68 98 11/28/16 12:00 96.5 57 16 182/81 100 CBC/BMP: 11/29/16 0555 11/29/16 0555 Lab Results Laboratory Tests Test 11/29/16 05:55 White Blood Count 5.9 TH/MM3 Red Blood Count 4.07 MIL/MM3 Hemoglobin 11.9 GM/DL Hematocrit 35.7 % Mean Corpuscular Volume 87.7 FL Mean Corpuscular Hemoglobin 29.3 PG Mean Corpuscular Hemoglobin 33.4 % Concent Red Cell Distribution Width 13.3 % Platelet Count 358 TH/MM3 Mean Platelet Volume 7.5 FL Neutrophils (%) (Auto) 57.5 % Lymphocytes (%) (Auto) 26.8 % Monocytes (%) (Auto) 8.3 % Eosinophils (%) (Auto) 6.6 % Basophils (%) (Auto) 0.8 % Neutrophils # (Auto) 3.4 TH/MM3 Lymphocytes # (Auto) 1.6 TH/MM3 Monocytes # (Auto) 0.5 TH/MM3 Eosinophils # (Auto) 0.4 TH/MM3 Basophils # (Auto) 0.0 TH/MM3 CBC Comment DIFF FINAL Differential Comment Sodium Level 147 MEQ/L Potassium Level 3.1 MEQ/L Chloride Level 113 MEQ/L Carbon Dioxide Level 25.0 MEQ/L Anion Gap 9 MEQ/L Blood Urea Nitrogen 18 MG/DL Creatinine 1.10 MG/DL Estimat Glomerular Filtration 47 ML/MIN Rate Random Glucose 57 MG/DL Calcium Level 8.3 MG/DL Total Bilirubin 0.3 MG/DL Aspartate Amino Transf 23 U/L (AST/SGOT) Alanine Aminotransferase 17 U/L (ALT/SGPT) Alkaline Phosphatase 100 U/L Total Protein 6.4 GM/DL Albumin 2.4 GM/DL Physical Exam General General Appearance: Well Nourished, No Acute Distress, Comfortable Eyes Eye Exam: Pupils Equal, Pupils Reactive, Sclera White, Extraocular Movement Intact Throat Throat Exam: Oral Mucosa [place] & Moist, Oral Pharynx Normal Neck Neck Exam: Neck Supple, Trachea Midline Pulmonary Resp Exam: Clear Bilaterally, Breath Sounds Equal, No Distress Cardiology CV Exam: Regular, Normal Sinus Rhythm Gastrointestinal/Abdomen GI Exam: Soft, Non-Tender, Bowel Sounds Present Integumentary Skin Exam: Clear, Warm, Dry, Intact Extremeties Extremities Exam: No Edema Neurologic Neuro Exam: Alert, Awake, Oriented, Speech Clear, Moving All Extremities Psychiatric Psych Exam: Appropriate Responses VTE Prophylaxis VTE Prophylaxis Device: SCDs PUD Prophylasis PUD Prophylaxis: Protonix Assessment/Plan Assessment/Plan ASSESSMENT/PLAN 1. S/P ACUTE DKA. . 2. Acute on chronic lower back pain. 3. Hypertension. 4. Diabetes mellitus. very poorly controlled 5. ARF / CKD stage III , acute comp d/t hypovolemia. 6. S/p fall , subtle L2 compression fracture. 7. History of arthritis. 8. History of myasthenia gravis. 9. CONS bacteremia , most likely contaminant PLAN The patient on ADA 1800 calorie diet. encourage po intake add supplement Levemir insulin HbA1c = 13 Accu checks qac & qhs w High dose sliding scale insulin. . BB/ ARB/ KILEY-I /CCB for BP control ID input appreciated d/c IV rocephin cont Mestinon on morphine 4 mg IV q.4 hours p.r.n. ,will d/c it cont Percocet 5/325 q.6h as needed for pain. add calcium w Vit D start Miacalcin ns & wkly Actonel for Osteoporosis PT eval & tx noted ss for d/c planning/pt is refusing SNF , possible d/c home in am w [facility] if BG remained stable & diarrhea didnot worsen DVT prophylaxis. SCDs. GI prophylaxis. Pepcid. daily. d/w RN d/w SW am labs Tina Rehman MD Nov 29, 2016 08:52
[2016-11-29 08:54] LABS: POTASSIUM 3.4 MEQ/L (3.5-5.1)
[2016-11-29] MEDS: CARVEDILOL 12.5 MG TAB PO SCH ×2 (09:01→20:23)
[2016-11-29] MEDS: LOSARTAN 50 MG TAB PO SCH (09:01)
[2016-11-29] MEDS: ENALAPRIL MALEATE 5 MG TAB PO SCH ×2 (09:01→20:23)
[2016-11-29] MEDS: PYRIDOSTIGMINE BROMIDE 60 MG TAB PO SCH ×3 (09:01→17:36)
[2016-11-29] MEDS: POTASSIUM CHLORIDE 25 MEQ EFFERVESCENT TAB PO SCH ×2 (09:02→09:03)
--- NOTE | 2016-11-29 09:26 | HHI.FF ---
Face to Face Verification Diagnosis: (1) DDD (degenerative disc disease) (2) Compression fracture of L2 (3) Hyperglycemia Physical Therapy Order: Evaluate and Treat, Improve ambulation, Strength and gait training Home Health Nursing Order: Signs/symptoms of disease process Diabetic education Medication education-adverse effect I have seen patient Kalpana Mckeon on 11/29/16. My clinical findings support the need for the requested home health care services because: Ltd mobility - disease progression Deconditioned w/ increased weakness Med compliance is questionable Limited ability to care for self I certify that my clinical findings support that this patient is homebound because: Unsteady gait/balance Unsafe to leave home unassisted Tina Rehman MD Nov 29, 2016 09:26
[2016-11-29 12:00] VITALS: BP 146/73; PULSE 66; RESP 20; TEMP 96.2; O2SAT 98
[2016-11-29 16:00] VITALS: BP 170/88; PULSE 66; RESP 20; TEMP 96.8; O2SAT 98
[2016-11-29 20:11] VITALS: BP 175/77; PULSE 68; RESP 18; TEMP 97.6; O2SAT 99
[2016-11-29] MEDS: CALCIUM/VITAMIN D 250 MG/125 U TAB PO SCH (20:23)
[2016-11-29] MEDS: FAMOTIDINE 20 MG TAB PO SCH (20:23)
[2016-11-29] MEDS: oxyCODONE/ACETAMINOPHEN 5 MG/325 MG TAB PO PRN (22:29)
[2016-11-29] MEDS: INSULIN DETEMIR 100 UNITS/ML VIAL SQ SCH (22:29)
[2016-11-30] VITALS: BP 179/81; PULSE 68; RESP 20; TEMP 96.1; O2SAT 98
[2016-11-30 04:00] VITALS: BP 159/84; PULSE 68; RESP 20; TEMP 96.4; O2SAT 98
[2016-11-30] MEDS: CHLORHEXIDINE GLUCONATE 2 % 1 PACK (2 CLOTHS) TOP SCH (04:00)
[2016-11-30 06:39] LABS: POTASSIUM 3.3 MEQ/L (3.5-5.1)
[2016-11-30 06:43] LABS: BICARBONATE 26.2 MEQ/L (21.0-32.0)
[2016-11-30] MEDS: INSULIN ASPART SUPPLEMENTAL SCALE SQ SCH ×4 (07:00→22:33)
[2016-11-30 08:00] VITALS: BP 169/77; PULSE 72; RESP 16; TEMP 96.2; O2SAT 97
--- NOTE | 2016-11-30 08:12 | HHI.PR ---
Subjective Interval History Resting in bed I am Ok back pain is in control No N/V No abd pain appetite is ok BG dropped this am again had lunch dinner and late night snaks as per pt and rn no headach or dizzines offers no other c/o ROS for 10 point system is unremarkable Review of Systems Constitutional Constitutional: Fatigue, Weakness Vitals/Results Intake & Output 11/29/16 11/29/16 11/30/16 15:00 23:00 07:00 Intake Total 1190 ml 60 ml 60 ml Balance 1190 ml 60 ml 60 ml Intake Oral 1190 ml 60 ml 60 ml # Voids 6 3 3 # Bowel Movements 3 0 0 Vital Signs Vital Signs Date Time Temp Pulse Resp B/P Pulse Ox O2 Delivery O2 Flow Rate FiO2 11/30/16 08:00 96.2 72 16 169/77 97 11/30/16 04:00 96.4 68 20 159/84 98 11/30/16 00:00 96.1 68 20 179/81 98 11/29/16 20:11 97.6 68 18 175/77 99 11/29/16 16:00 96.8 66 20 170/88 98 11/29/16 12:00 96.2 66 20 146/73 98 CBC/BMP: 11/29/16 0555 11/30/16 0530 Lab Results Laboratory Tests Test 11/29/16 11/30/16 08:20 05:30 Sodium Level 146 MEQ/L 144 MEQ/L Potassium Level 3.4 MEQ/L 3.3 MEQ/L Chloride Level 113 MEQ/L 109 MEQ/L Carbon Dioxide Level 22.0 MEQ/L 26.2 MEQ/L Anion Gap 11 MEQ/L 9 MEQ/L Blood Urea Nitrogen 17 MG/DL 15 MG/DL Creatinine 1.10 MG/DL 1.00 MG/DL Estimat Glomerular Filtration 47 ML/MIN 53 ML/MIN Rate Random Glucose 104 MG/DL 42 MG/DL Calcium Level 8.1 MG/DL 8.3 MG/DL Physical Exam General General Appearance: Well Nourished, No Acute Distress, Comfortable Eyes Eye Exam: Pupils Equal, Pupils Reactive, Sclera White, Extraocular Movement Intact Throat Throat Exam: Oral Mucosa [place] & Moist, Oral Pharynx Normal Neck Neck Exam: Neck Supple, Trachea Midline Pulmonary Resp Exam: Clear Bilaterally, Breath Sounds Equal, No Distress Cardiology CV Exam: Regular, Normal Sinus Rhythm Gastrointestinal/Abdomen GI Exam: Soft, Non-Tender, Bowel Sounds Present Integumentary Skin Exam: Clear, Warm, Dry, Intact Extremeties Extremities Exam: No Edema Neurologic Neuro Exam: Alert, Awake, Oriented, Speech Clear, Moving All Extremities Psychiatric Psych Exam: Appropriate Responses VTE Prophylaxis VTE Prophylaxis Device: SCDs PUD Prophylasis PUD Prophylaxis: Protonix Assessment/Plan Assessment/Plan ASSESSMENT/PLAN 1. S/P ACUTE DKA. . 2. Acute on chronic lower back pain. 3. Hypertension. 4. Diabetes mellitus. very poorly controlled 5. ARF / CKD stage III , acute comp d/t hypovolemia. 6. S/p fall , subtle L2 compression fracture. 7. History of arthritis. 8. History of myasthenia gravis. 9. CONS bacteremia , most likely contaminant PLAN The patient on ADA 1800 calorie diet. encourage po intake add supplement Levemir insulin change to BID instead of night time only will follow sugar as dw rn, monitor for low sugar HbA1c = 13 Accu checks qac & qhs w High dose sliding scale insulin. . BB/ ARB/ KILEY-I /CCB for BP control ID input appreciated off of IV rocephin cont Mestinon cont Percocet 5/325 q.6h as needed for pain. add calcium w Vit D start Miacalcin ns & wkly Actonel for Osteoporosis PT eval & tx noted ss for d/c planning/pt is refusing SNF , possible d/c home in am w [facility] if BG remained stable better diarrhea as per pt and rn DVT prophylaxis. SCDs. GI prophylaxis. Pepcid. daily. d/w RN d/w pt partner will follow from tomorrow Martin Montiel MD Nov 30, 2016 08:12
[2016-11-30] MEDS: CARVEDILOL 12.5 MG TAB PO SCH ×2 (08:36→22:32)
[2016-11-30] MEDS: PYRIDOSTIGMINE BROMIDE 60 MG TAB PO SCH ×3 (08:36→18:30)
[2016-11-30] MEDS: POTASSIUM CHLORIDE 25 MEQ EFFERVESCENT TAB PO SCH (08:36)
[2016-11-30] MEDS: CALCITONIN SALM 200 UNIT/SPRAY 3.7 ML BTLN NASAL SCH (08:37)
[2016-11-30] MEDS: CALCIUM/VITAMIN D 250 MG/125 U TAB PO SCH ×2 (08:37→22:38)
[2016-11-30] MEDS: ENALAPRIL MALEATE 5 MG TAB PO SCH ×2 (08:37→22:32)
[2016-11-30] MEDS: LOSARTAN 50 MG TAB PO SCH (08:37)
[2016-11-30] MEDS ORDERED: POTASSIUM CHLORIDE 20 MEQ CONTROLLED RELEASE TAB PO ONE (09:00)
[2016-11-30 12:00] VITALS: BP 106/64; PULSE 74; RESP 16; TEMP 97.1; O2SAT 98
[2016-11-30 16:00] VITALS: BP 158/84; PULSE 70; RESP 16; TEMP 96.6; O2SAT 96
[2016-11-30 20:45] VITALS: BP 165/84; PULSE 68; RESP 20; TEMP 98.6; O2SAT 96
[2016-11-30] MEDS ORDERED: INSULIN DETEMIR 100 UNITS/ML VIAL SQ SCH (21:00)
[2016-11-30] MEDS ORDERED: diphenhydrAMINE HCL 25 MG CAP PO ONE (22:30)
[2016-11-30] MEDS: FAMOTIDINE 20 MG TAB PO SCH (22:32)
[2016-12-01] VITALS: BP 160/80; PULSE 71; RESP 20; TEMP 97.8; O2SAT 98
[2016-12-01] MEDS: CHLORHEXIDINE GLUCONATE 2 % 1 PACK (2 CLOTHS) TOP SCH (04:00)
[2016-12-01] MEDS: INSULIN ASPART SUPPLEMENTAL SCALE SQ SCH ×2 (06:14→12:49)
[2016-12-01] MEDS ORDERED: INSULIN DETEMIR 100 UNITS/ML VIAL SQ SCH (07:00)
[2016-12-01 08:00] VITALS: BP 128/75; PULSE 79; RESP 20; TEMP 98; O2SAT 98
[2016-12-01 09:49] LABS: BICARBONATE 28.1 MEQ/L (21.0-32.0)
[2016-12-01] MEDS: LOSARTAN 50 MG TAB PO SCH (09:59)
[2016-12-01] MEDS: ENALAPRIL MALEATE 5 MG TAB PO SCH (10:00)
[2016-12-01] MEDS: CALCITONIN SALM 200 UNIT/SPRAY 3.7 ML BTLN NASAL SCH (10:00)
[2016-12-01] MEDS: CARVEDILOL 12.5 MG TAB PO SCH (10:00)
[2016-12-01] MEDS: CALCIUM/VITAMIN D 250 MG/125 U TAB PO SCH (10:00)
[2016-12-01] MEDS: PYRIDOSTIGMINE BROMIDE 60 MG TAB PO SCH ×2 (10:00→12:49)
[2016-12-01] MEDS: POTASSIUM CHLORIDE 25 MEQ EFFERVESCENT TAB PO SCH (10:00)
[2016-12-01 11:05] LABS: POTASSIUM 3.4 MEQ/L (3.5-5.1)
[2016-12-01 12:00] VITALS: BP 157/82; PULSE 68; RESP 20; TEMP 97.2; O2SAT 97
--- NOTE | 2016-12-01 12:08 | HHI.PR ---
Subjective Interval History alert, verbal. mildly confused, no c/o Review of Systems Constitutional Constitutional: Fatigue, Weakness Vitals/Results Intake & Output 11/30/16 11/30/16 12/01/16 15:00 23:00 07:00 Intake Total 960 ml 60 ml 60 ml Balance 960 ml 60 ml 60 ml Intake Oral 960 ml 60 ml 60 ml # Voids 3 1 2 # Bowel Movements 0 0 0 Vital Signs Vital Signs Date Time Temp Pulse Resp B/P Pulse Ox O2 Delivery O2 Flow Rate FiO2 12/01/16 08:00 98.0 79 20 128/75 98 12/01/16 00:00 97.8 71 20 160/80 98 11/30/16 20:45 98.6 68 20 165/84 96 11/30/16 16:00 96.6 70 16 158/84 96 CBC/BMP: 11/29/16 0555 12/01/16 0915 Lab Results Laboratory Tests Test 12/01/16 09:15 Sodium Level 141 MEQ/L Potassium Level 3.4 MEQ/L Chloride Level 104 MEQ/L Carbon Dioxide Level 28.1 MEQ/L Anion Gap 9 MEQ/L Blood Urea Nitrogen 14 MG/DL Creatinine 1.20 MG/DL Estimat Glomerular Filtration 43 ML/MIN Rate Random Glucose 150 MG/DL Calcium Level 9.0 MG/DL Physical Exam General General Appearance: Well Nourished, No Acute Distress, Comfortable Eyes Eye Exam: Pupils Equal, Pupils Reactive, Sclera White, Extraocular Movement Intact Throat Throat Exam: Oral Mucosa [place] & Moist, Oral Pharynx Normal Neck Neck Exam: Neck Supple, Trachea Midline Pulmonary Resp Exam: Clear Bilaterally, Breath Sounds Equal, No Distress Cardiology CV Exam: Regular, Normal Sinus Rhythm Gastrointestinal/Abdomen GI Exam: Soft, Non-Tender, Bowel Sounds Present Integumentary Skin Exam: Clear, Warm, Dry, Intact Extremeties Extremities Exam: No Edema Neurologic Neuro Exam: Alert, Awake, Speech Clear, Moving All Extremities Psychiatric Psych Exam: Appropriate Responses VTE Prophylaxis VTE Prophylaxis Device: SCDs PUD Prophylasis PUD Prophylaxis: Protonix Assessment/Plan Assessment/Plan ASSESSMENT/PLAN 1. S/P ACUTE DKA on admission. resolved 2. Acute on chronic lower back pain. 3. Hypertension. 4. Diabetes mellitus. very poorly controlled 5. ARF / CKD stage III , acute comp d/t hypovolemia. 6. S/p fall , subtle L2 compression fracture. 7. History of arthritis. 8. History of myasthenia gravis. 9. CONS bacteremia , most likely contaminant PLAN continue 1800 calorie diet. supplement Levemir insulin cont Mestinon Miacalcin nasal spray & wkly Actonel for Osteoporosis PT patient refusing SNF , d/c home with [facility] d/w RN d/w pt Discharge Minutes: 40 Nydia Valdes MD Dec 01, 2016 12:08 remained stable better diarrhea as per pt and rn DVT prophylaxis. SCDs. GI prophylaxis. Pepcid. daily. d/w RN d/w pt partner will follow from tomorrow Nydia Valdes MD Dec 01, 2016 12:08
[2016-12-01] MEDS ORDERED: OXYC1TAB63 PO (12:19)
[2016-12-01] MEDS ORDERED: CALC200S NASAL (12:19)
[2016-12-01] MEDS ORDERED: NOVOLOGSS SQ (12:19)
[2016-12-01] MEDS ORDERED: OYST250T4 PO (12:19)
[2016-12-01] MEDS ORDERED: LEVEMIR SQ ×2 (12:19)
--- NOTE | 2017-02-04 18:00 | HHI.DS ---
Discharge Summary Admission Date Nov 26, 2016 at 12:58 Discharge Date: Dec 01, 2016 Admitting Diagnosis hyperglycemia, L2 compression fx (1) Compression fracture of L2 (2) Hyperglycemia (3) DDD (degenerative disc disease) (4) HTN (hypertension) (5) Back pain Imaging Last Impressions Lumbar Spine X-Ray 11/26/16 0000 Signed Impressions: Service Date/Time: Saturday, November 26, 2016 10:58 - CONCLUSION: 1. Subtle height loss at the superior endplate of L2 could represent a subtle compression fracture. This represents a change from the prior study from August 2014. 2. No other acute finding is identified. There are degenerative changes throughout the lumbar spine, as above. Prasad Anderson MD Chest X-Ray 11/26/16 0000 Signed Impressions: Service Date/Time: Saturday, November 26, 2016 13:52 - CONCLUSION: Underinflated examination with atelectasis at the right lung base. Otherwise, no acute finding is identified. Prasad Anderson MD Hospital Course This is an 86-year female with past medical-surgical history significant for anemia, arthritis, right breast cancer status post a mastectomy, right side. Hypertension, diabetes mellitus. History of hysterectomy, postmenopausal, thyroid biopsy in the past, cataract removed 10 years ago and tonsillectomy, who came to the ER at [facility] via [facility] with a chief complaint of generalized weakness and also having acute on chronic lower back pain. The pain is about 7-8 out of 10. She felt weak today that it caused her to fall and is complaining of pain in the back and injury to the back. EMS reported that the family reported to them that the patient had decreased intake by mouth and decreased activity for the last couple of days. She lives alone. She got fingerstick blood sugar and it is elevated in the 400s. She states that she has been compliant with medications. She reports no dietary indiscretions. She denies nausea or vomiting, diarrhea and she denies any abdominal pain. She denies any chest pain, shortness of breath. She denies any frequent painful urination or any other symptom or complaint. Other than that nothing significant. The patient was not a very good historian. LABORATORY DATA Labs, CBC showed WBC count 12.1 high. Neutrophil high at 71.3. Basophils high 4.2. Neutrophil is 8.6 high. Otherwise CBC is normal. Hemoglobin is 12.4 normal, hematocrit 37.3 normal. BMP shows carbon dioxide high at 17.1. Anion gap is 16 high. BUN is 40, high. Creatinine was 1.6 now it is 1.5. Blood glucose of 462, then 388, then 192 last reading. Nurse CRISTINA Deluna told me about 192 blood sugar. He checked at bedside. Troponin I less than 0.02. Albumin 3.0, total protein 7.0. Urine examination showed glucose greater than 1000, 40 of ketones, moderate occult blood, rbc's 15-19, wbc's 0-2. Blood cultures x2 done negative so far. IMAGING Lumbar spine x-ray was done shows subtle height loss at the superior endplate of L2 could represent a subtle compression fracture. This represents a change from the prior study from August of 2014. No acute finding is identified. There are degenerative changes throughout the lumbar spine and above. Chest x-ray was done shows under inflated examination with atelectasis at the right lung base, otherwise no acute findings is identified. Pt. admitted for further evaluation and treatment. 1. This is an 86-year female who came to the ER diagnosed with DKA. The patient's sugar was 462 with 5.62 beta hydroxybuterate. The patient got IV fluids and insulin and the patient's sugar dropped down to 192. We managed the sugar with high-dose insulin sliding scale and monitored closely. The patient went to ICU. Pt. developed hypoglycemia. Further changes made to insulin 2. Acute on chronic lower back pain. Started the patient on morphine 4 mg IV q.4 hours p.r.n. pain and also Percocet 5/325 q.6h as needed for pain. 3. History of hypertension. Continued home medication. 4. Diabetes mellitus. The patient on ADA 1800 calorie diet. High dose sliding scale insulin. Check blood sugars very closely. 5. Renal failure / insufficiency. Most likely secondary to dehydration and DKA. Monitored very closely. 6. Status post fall and x-ray of the lumbar spine shows subtle height loss at the superior endplate of L2 could represents a subtle compression fracture. Orthopedic consulted for further recommendation. The patient is on pain medicine. Added calcium w Vit D and started Miacalcin ns & wkly Actonel for Osteoporosis PT eval and treatment ordered. 7. History of arthritis. Continue home medication. 8. History of myasthenia gravis. Continue Mestinon 9. DVT prophylaxis. SCDs. 10. GI prophylaxis. Protonix 40 mg p.o. daily. 11. Poss bacteremia, + blood cultures. ID consulted and put on Rocephin. ID recommended to monitor for fever, WBC, no abx recommended-Rocephin DCd Pt. improved, recommended SNF placement. She wanted home with [facility]. She finally agreed to SNF. Pt. discharged in stable condition Pt Condition on Discharge: Stable Discharge Disposition: Discharge to SNF Discharge Instructions DIET: Follow Instructions for: Diabetic Diet Activities you can perform: Weight Bearing as [place] New Medications: Calcitonin ([place]) Nasal [place] (Calcitonin ([place]) Nasal [place]) 200 Unit/Act [place] 1 SPRAY NASAL DAILY osteoporosis #30 BOTTLE Calcium Carbonate-Cholecalciferol (Oyster Shell Calcium/Vitamin D) 250-125 Mg- Unit Tab 500 MG PO Q12HR low calcium #60 TAB Insulin Aspart Inj (Novolog Inj) 100 Unit/Ml Inj 1 UNITS SQ ACHS SLIDING SCALE dm #30 INJECTION Insulin Detemir Inj (Levemir Inj) 1,000 unit/ 10 ML Vial 7 UNITS SQ HS DM #30 INJECTION Insulin Detemir Inj (Levemir Inj) 1,000 unit/ 10 ML Vial 6 UNITS SQ BID DM #60 INJECTION Oxycodone-Acetaminophen (Oxycodone-Acetaminophen) 5-325 mg Tab 1 TAB PO Q4H PRN PAIN 3-10 #30 TAB Continued Medications: Amlodipine (Amlodipine) 10 Mg Tab 10 MG PO DAILY Blood Pressure Management #30 Ref 0 TAB Carvedilol (Carvedilol) 25 Mg Tab 25 MG PO BID #60 Ref 0 TAB Enalapril (Enalapril) 5 Mg Tab 5 MG PO BID #60 Ref 0 TAB Losartan (Losartan) 100 Mg Tab 100 MG PO DAILY Blood Pressure Management #30 Ref 0 TAB Pyridostigmine (Pyridostigmine) 60 Mg Tab 60 MG PO TID Manage Myastenia Gravis #180 Ref 0 TAB Discontinued Medications: Glipizide (Glipizide) 10 Mg Tab 10 MG PO DAILY Take 30 minutes before a meal Blood Sugar Management #30 Ref 0 TAB Insulin Detemir Inj (Levemir Inj) 1,000 unit/ 10 ML Vial 15 UNITS SQ HS Do not mix with any other Insulin. Blood Sugar Management Ref 0 VIAL Shelbi Devine February 04, 2017 17:59 DIET: Follow Instructions for: Diabetic Diet Activities you can perform: Weight Bearing as [place]ali New Medications: Calcitonin ([place]) Nasal [place] (Calcitonin ([place]) Nasal [place]) 200 Unit/Act [place] 1 SPRAY NASAL DAILY osteoporosis #30 BOTTLE Calcium Carbonate-Cholecalciferol (Oyster Shell Calcium/Vitamin D) 250-125 Mg- Unit Tab 500 MG PO Q12HR low calcium #60 TAB Insulin Aspart Inj (Novolog Inj) 100 Unit/Ml Inj 1 UNITS SQ ACHS SLIDING SCALE dm #30 INJECTION Insulin Detemir Inj (Levemir Inj) 1,000 unit/ 10 ML Vial 7 UNITS SQ HS DM #30 INJECTION Insulin Detemir Inj (Levemir Inj) 1,000 unit/ 10 ML Vial 6 UNITS SQ BID DM #60 INJECTION Oxycodone-Acetaminophen (Oxycodone-Acetaminophen) 5-325 mg Tab 1 TAB PO Q4H PRN PAIN 3-10 #30 TAB Continued Medications: Amlodipine (Amlodipine) 10 Mg Tab 10 MG PO DAILY Blood Pressure Management #30 Ref 0 TAB Carvedilol (Carvedilol) 25 Mg Tab 25 MG PO BID #60 Ref 0 TAB Enalapril (Enalapril) 5 Mg Tab 5 MG PO BID #60 Ref 0 TAB Losartan (Losartan) 100 Mg Tab 100 MG PO DAILY Blood Pressure Management #30 Ref 0 TAB Pyridostigmine (Pyridostigmine) 60 Mg Tab 60 MG PO TID Manage Myastenia Gravis #180 Ref 0 TAB Discontinued Medications: Glipizide (Glipizide) 10 Mg Tab 10 MG PO DAILY Take 30 minutes before a meal Blood Sugar Management #30 Ref 0 TAB Insulin Detemir Inj (Levemir Inj) 1,000 unit/ 10 ML Vial 15 UNITS SQ HS Do not mix with any other Insulin. Blood Sugar Management Ref 0 VIAL Shelbi Devine [facility] February 04, 2017 17:59
== END 2016-12-01 16:00 | DRG 638 ==
LOC: PHED 10:15 → PHEDA 12:58 → PHICU 14:42 → PH3B 11-28 03:28
PROVIDERS: ADMIT Family Medicine; ATTEND Family Medicine
DX: E13.10 Other specified diabetes mellitus with ketoacidosis without coma (principal); M48.56XA Collapsed vertebra, not elsewhere classified, lumbar region, initial encounter for fracture; G70.00 Myasthenia gravis without (acute) exacerbation; E86.0 Dehydration; I12.9 Hypertensive chronic kidney disease with stage 1 through stage 4 chronic kidney disease, or unspecified chronic kidney disease; N18.3 Chronic kidney disease, stage 3 (moderate); W19.XXXA Unspecified fall, initial encounter; G89.29 Other chronic pain; E86.1 Hypovolemia; M81.0 Age-related osteoporosis without current pathological fracture; Z85.3 Personal history of malignant neoplasm of breast; Z90.10 Acquired absence of unspecified breast and nipple; Z90.710 Acquired absence of both cervix and uterus; Y92.9 Unspecified place or not applicable
CPT/HCPCS: 36600; 71020; 72100; 80048; 80053; 81001; 82010; 82805; 82948; 83036; 83735; 84100; 84484; 85025; 86403; 87040; 87077; 87186; 87205; 87641; 93005; 96374; 96375; J0696; J1815; J1817; J2270; J2405; J3480; J7030